=== PATIENT | female | born 1975 | race Caucasian/White ===

== ENCOUNTER 2022-07-22 11:28 | Outpatient (REF) | payer MEDICAID, SELFPAY ==
--- NOTE | 2022-07-22 10:15 | EMG_ITS ---
Bilateral median and ulnar motor and sensory studies were performed. Bilateral radial sensory studies were performed and paraspinal muscles were tested with a needle. IMPRESSION: 1. Mild bilateral ulnar neuropathy across cubital tunnel. 2. Mild right median neuropathy across carpal tunnel. MD KEREN Davis/ANAND / [id number]
== END 2022-07-22 11:29 | disposition home or self-care (01) ==
LOC: HO.NEURO 11:28
PROVIDERS: PCP Internal Medicine; Visit Provider Internal Medicine
DX: R20.0 Anesthesia of skin (principal)
CPT/HCPCS: 95886; 95911